=== PATIENT | female | born 1985 | race Caucasian/White ===

== ENCOUNTER → 2024-09-04 07:19 | Outpatient (CLI) | payer OTHER, SELFPAY ==
[2024-09-04 09:54] LABS: HCG Quantitative /Beta subunit 2178.2 mIU/mL
== END ==
PROVIDERS: Referring Provider Family Medicine; Visit Provider Family Medicine
DX: Z34.90 Encounter for supervision of normal pregnancy, unspecified, unspecified trimester (principal)
CPT/HCPCS: 36415; 84702